=== PATIENT | male | born 1965 | race African-American/Black ===

== ENCOUNTER 2020-12-30 06:02 | Day surgery (SDC) | payer OTHER ==
[~2020-12-30] VITALS: Ht 170.2 cm; Wt 97.7 kg
[2020-12-30 06:34] VITALS: BP 121/59
[2020-12-30] MEDS ORDERED: TAMS0.4C97 PO (06:41)
[2020-12-30] MEDS ORDERED: IV RINGERS,LACTATED 1000ML 1,000 ML IV SCH (07:00)
[2020-12-30 07:44] VITALS: BP 115/63
--- NOTE | 2020-12-30 09:24 | CONS ---
DATE OF CONSULTATION: 12/30/2020 GASTROENTEROLOGY CONSULTATION REFERRING PHYSICIAN: Bill Rae MD. REASON FOR CONSULTATION: Family history of colon cancer, grandfather and two uncles and change in bowel habits. HISTORY OF PRESENT ILLNESS: A 55-year-old male with past medical history significant for BPH, seen for a screening colon. Bowel habits have been recently more constipated, requiring laxatives, ____. Weight and appetite have been stable. There has been no melena and/or hematochezia, and has not previously undergone any screening exams and is here today. PAST MEDICAL HISTORY: BPH. ALLERGIES: None. MEDICATIONS: Include Flomax. SOCIAL HISTORY: Nondrinker, nonsmoker at this time. FAMILY HISTORY: Significant for colon cancer, grandfather and 2 uncles, and his father had colon polyps. REVIEW OF SYSTEMS: HEENT: There is no decreased hearing or visual acuity issues. CARDIAC: There is no history of hypertension, palpitations, syncope. PULMONARY: No shortness of breath, productive cough, asthma. RENAL: No dysuria, frequency, hematuria. MUSCULOSKELETAL: No history of osteoarthrosis, arthralgias, myalgias. DERMATOLOGIC: No skin rashes or pruritus. NEUROLOGIC: No stroke, migraine, neuropathy. PSYCHIATRIC: No mood swings, depression, insomnia. HEMATOLOGIC: No bleeding, bruising coagulopathy. GASTROINTESTINAL: See history of present illness. PHYSICAL EXAMINATION: GENERAL: Reveals a well-nourished, well-developed male. VITAL SIGNS: Temperature 97.6, pulse 70, respiratory rate 18. LUNGS: Clear. CARDIOVASCULAR: S1, S2, without S3, S4 or appreciable murmur. ABDOMEN: Reveals a soft abdomen, normal bowel sounds, appreciable hepatosplenomegaly. EXTREMITIES: Reveals no cyanosis, clubbing or edema. IMPRESSION: Colorectal screening with family history of colon cancer is recommended. Risks and benefits have been discussed with the patient including risk of hemorrhage, perforation and is willing to proceed at this time. KAREN/LARS/AMANDA DR: Gabe TID: [id number] CC: Dr. Bill Rae
== END 2020-12-30 08:05 | disposition home or self-care (01) ==
LOC: SURG 06:02 → EEVIPCON 07:00 → SURG 08:05
PROVIDERS: ATTEND Internal Medicine Gastroenterology
DX: R19.4 Change in bowel habit (principal); K64.0 First degree hemorrhoids; K63.89 Other specified diseases of intestine; N40.0 Benign prostatic hyperplasia without lower urinary tract symptoms; K21.9 Gastro-esophageal reflux disease without esophagitis; M19.90 Unspecified osteoarthritis, unspecified site; Z79.899 Other long term (current) drug therapy; Z98.890 Other specified postprocedural states; Z80.0 Family history of malignant neoplasm of digestive organs
CPT/HCPCS: 45378